=== PATIENT | male | born 1960 | race Caucasian/White ===

== ENCOUNTER 2019-08-09 23:31 | Emergency (ER) | payer OTHER, SELFPAY ==
--- NOTE | 2019-08-09 23:40 | ED.NAVMDI ---
HPI - Nausea/Vomiting/Diarrhea General Chief complaint: Nausea/Vomiting/Diarrhea Stated complaint: Ingestion of possible Anti Freeze while working on car at work today. Admits to ingesting 5-15ml of Antifreeze that spilled on his face. Related Data Home Medications Medication Instructions Recorded Confirmed No Home Medications 08/10/19 08/10/19 Allergies Allergy/AdvReac Type Severity Reaction Status Date / Time No Known Allergies Allergy Verified 08/10/19 01:17 Review of Systems Review of Systems: All systems reviewed & are unremarkable except as noted in HPI and below Constitutional: Constitutional: Reports as per HPI and Reports no additional constitutional complaints Eyes: Eyes: Reports as per HPI and Reports no additional eye complaints ENT: Reports system reviewed and no additional complaints, except as documented Cardiovascular: Cardiovascular: Reports no additional cardiovascular complaints Respiratory: Respiratory: Reports no additional respiratory complaints Gastrointestinal: Gastrointestinal: Reports as per HPI, Reports nausea and Reports vomiting Genitourinary: Genitourinary: Reports no additional male genitourinary complaints Musculoskeletal: Musculoskeletal: Reports no additional musculoskeletal complaints Integumentary/Breasts: Skin/Breast: Reports system reviewed and no additional complaints, except as docu Neurologic: Reports system reviewed and no additional complaints, except as documented Psychiatric: Psychiatric: Reports no additional psychiatric complaints Endocrine: Endocrine: Reports no additional endocrine complaints Hematologic/Lymphatic: Hematologic/Lymphatic: Reports no additional hematologic/lymphatic complaints Exam Const: General: no acute distress and alert Orientation/consciousness: patient oriented x3 HENMT: Head: normal to inspection Eyes: Pupils: Equal, round and reactive pupils present Neck: Neck: normal visual inspection Chest: Chest palpation & inspection: normal inspection of the chest Resp: Effort & Inspection: normal respiratory effort Cardio: Rhythm: regular rhythm GI: Inspection: non-distended GI Palp: Yes Soft to palpation and No Tenderness to palpation present (GI) : Testes: Testes normal Skin: General skin exam: normal color Neuro: General: patient oriented x3, moves all extremities, no meningeal signs, no focal motor deficits and CN's II-XI intact bilaterally Extrem: General: normal to inspection Psych: Mental Status: mental status grossly normal Course Course Emergency Course: Admits to improvement in overall status. No longer c/o nausea. Wants to go home. Vital Signs Vital signs: Vital Signs Temperature 97.5 F L 08/09/19 23:44 Pulse Rate 61 08/09/19 23:44 Respiratory Rate 16 08/09/19 23:44 Blood Pressure 147/93 H 08/09/19 23:44 Pulse Oximetry 98 08/09/19 23:44 Temperature 98.7 F 08/10/19 01:19 Pulse Rate 75 08/10/19 01:19 Respiratory Rate 18 08/10/19 01:19 Blood Pressure 110/74 08/10/19 01:19 Pulse Oximetry 97 08/10/19 01:19 MDM - Nausea/Vomiting/Diarrhea Differential Diagnosis Differential diagnosis: Likely other (Nausea sec to small amount of Antifreeze ingestion (Accidental)) Medical Records Attestation: I reviewed the patient's medical records. Lab Data Attestation: I reviewed the patient's lab results. Result diagrams: 08/10/19 00:15 08/10/19 00:15 Labs: Lab Results 08/10/19 08/10/19 08/10/19 Range/Units 00:15 00:15 00:15 WBC 7.1 (4.8-10.8) K/mm3 RBC 4.50 L (4.70-6.10) M/mm3 Hgb 13.8 L (14.0-18.0) g/dL Hct 40.1 (40.0-54.0) % MCV 89.1 (78.0-102.0) fL MCH 30.7 (27.0-31.0) pg MCHC 34.4 (32.0-36.0) g/dL RDW 12.2 (11.6-14.4) % Plt Count 215 (150-420) K/mm3 MPV 10.0 (8.7-11.0) fl Immature Gran % (Auto) 0.6 H (0.0-0.0) % Neut % (Auto) 35.6 L (50.0-70.0) % Lymph % (Auto) 50.4 H
[2019-08-09 23:44] VITALS: BP 147/93; PULSE 61; RESP 16; TEMP 36.4; O2SAT 98
[2019-08-09] MEDS: ONDANSETRON INJ 4 MG/2 ML VIAL IV PUSH (23:58)
[2019-08-09] MEDS: SODIUM CHLORIDE 0.9% IV 1,000 ML 999 ML IV CONT (23:58)
[2019-08-10 00:23] LABS: Basophils Absolute Auto 0.07 K/mm3 (0.00-0.10); Eosinophils Absolute Auto 0.16 K/mm3 (0.02-0.50); Eosinophils Percent Auto 2.3 % (1.0-6.0); Hematocrit 40.1 % (40.0-54.0); Hemoglobin 13.8 g/dL (14.0-18.0); Immature Granulocyte Absolute 0.04 K/mm3 (0.00-0.00); Immature Granulocyte Percent A 0.6 % (0.0-0.0); Lymphocytes Absolute Auto 3.56 K/mm3 (1.10-4.50); Lymphocytes Percent Auto 50.4 % (18.0-42.0); Mean Corpuscular HGB Conc 34.4 g/dL (32.0-36.0); Mean Corpuscular Hemoglobin 30.7 pg (27.0-31.0); Mean Corpuscular Volume 89.1 fL (78.0-102.0); Monocytes Absolute Auto 0.71 K/mm3 (0.10-0.90); Monocytes Percent Auto 10.1 % (2.0-11.0); Neutrophils Absolute Auto 2.5 K/mm3 (1.7-7.2); Neutrophils Percent Auto 35.6 % (50.0-70.0); Platelet Count Result 215 K/mm3 (150-420); Red Cell Distribution Width 12.2 % (11.6-14.4); White Blood Count 7.1 K/mm3 (4.8-10.8)
[2019-08-10 00:39] LABS: Partial Thromboplastin Time 25.9 SEC (22.3-31.6)
[2019-08-10 00:39] LABS: Amphetamine Screen Urine Negative (Negative); Barbiturate Screen Urine Negative (Negative); Benzodiazepines Screen Urine Negative (Negative); Cannabinoid Screen Urine Negative (Negative); Cocaine Screen Urine Negative (Negative); Methadone Screen Urine Negative (Negative); Opiate Screen Urine Negative (Negative); Phencyclidine Screen Urine Negative (Negative)
[2019-08-10 00:48] LABS: Alanine Aminotransferase 18 U/L (16-63); Albumin Level 3.5 g/dL (3.4-5.0); Alkaline Phosphatase 107 U/L (46-116); Anion Gap 9.9 mmol/L (7-16); Aspartate Amino Transferase 11 U/L (15-37); Bilirubin,Total 0.3 mg/dL (0.00-1.00); Blood Urea Nitrogen 16 mg/dL (7-18); Calcium 7.9 mg/dL (8.5-10.1); Carbon Dioxide 30 mmol/L (21-32); Chloride 106 mmol/L (98-108); Estimated CRCL calculation 74 ml/min; Estimated Glomerular Filt Rate > 60; Glucose 84 mg/dL (70-99); Lipase 55 U/L (73-393); Osmolality Calculated 294 mOsm/kg (285-295); Potassium 3.9 mmol/L (3.5-5.1); Sodium 142 mmol/L (136-145); Total Protein 6.8 g/dL (6.4-8.2)
[2019-08-10 00:53] LABS: Base Excess ABG 1.2 mmol/L (0-2); HCO3 ABG 26.4 mmol/L (23-29); Oxygen Content ABG 17.7 %vol (16.0-22.0); Oxygen Saturation ABG 91.8 % (95-97); Oxyhemoglobin 89.9 % (94-100); PO2 ABG 60.6 mmHg (80-90)
[2019-08-10 00:55] LABS: Modified Allen's Test Pass; Site Drawn RIGHT RADIAL
[2019-08-10 00:56] LABS: Device ROOM AIR
[2019-08-10 00:57] LABS: Acetaminophen 0 ug/mL (10-30); Ammonia 26 umol/L (11-32); Creatine Kinase 145 U/L (39-308); Ethanol < 3 mg/dL (0-6); Phosphorus 3.4 mg/dL (2.6-4.7); Salicylate 2.3 mg/dL (2.8-20.0)
[2019-08-10 01:00] LABS: Add Urine Microscopic? NO; Appearance Urine Clear (Clear); Bilirubin Urine Negative (Negative); Blood Urine Negative (Negative); Color Urine Yellow (Yellow); Glucose Urine UA Negative (Negative); Ketones Urine Negative (Negative); Leukocyte Esterase Ur Negative LEU/UL (Negative); Nitrate Urine Negative (Negative); Protein Urine Negative (Negative); Specific Grav Ur >= 1.030 (1.010-1.020); Urobilinogen Urine 0.2 mg/dL (0.2-1.0)
--- NOTE | 2019-08-10 01:12 | PC.NURSE ---
pt sleeping, no distress.
[2019-08-10 01:19] VITALS: BP 110/74; PULSE 75; RESP 18; TEMP 37.1; O2SAT 97
[2019-08-14 07:05] LABS: Glucose Point of Care 105 (65-105)
[2019-08-16 08:05] LABS: Reference Lab Test Name ETHYLENE GLYCOL
== END 2019-08-10 01:30 | disposition home or self-care (01) ==
PROVIDERS: Emergency Provider Family Medicine
DX: T65.91XA Toxic effect of unspecified substance, accidental (unintentional), initial encounter (principal)
CPT/HCPCS: 36415; 36600; 80053; 80307; 81003; 82140; 82550; 82693; 82805; 82948; 83690; 83735; 83930; 84100; 85025; 85610; 85730; 96361; 96374; 99283; 99284; J2405; J7030